=== PATIENT | male | born 1935 | race Caucasian/White ===

== ENCOUNTER 2019-07-01 11:34 | Inpatient (IN) | payer MEDICARE, OTHER ==
[~2019-07-01] VITALS: Ht 198.1 cm; Wt 106.6 kg
--- NOTE | ~2019-07-01 | PN ---
PATIENT:CINTHYA MARTINEZ MEDICAL RECORD: [id number] LOCATION:[facility] ADMISSION DATE: 07/01/19 PROGRESS NOTE DATE OF SERVICE: 07/14/2019 SUBJECTIVE: The patient's case was discussed with staff. He has no new complaint. OBJECTIVE: The patient is much calmer than he has been. He has pretty limited insight about his situation. He is not showing any evidence of significant aggression. ASSESSMENT: Dementia. PLAN: The patient will be transitioned out of the hospital today. He has no evidence of dangerous to other patients or caregivers. His long-term prognosis is guarded. TRANSINT:[id number] Voice Confirmation ID: [id number] DOCUMENT ID: [id number] AAYUSH ALVARADO MD CC: [id number] DICTATION DATE: 07/14/19 1502 LAWN MOWER OPERATOR: 07/14/19 1747 DIS IN 07/14/19 [facility] [address] [place] [address]
[2019-07-01 14:55] VITALS: BP 99/58; BMI 27.7
--- NOTE | 2019-07-01 15:18 | NUR ---
The patient is awake and alert, he lives at the [facility] at the [facility]. His son brought him with a referral from Consuelo Arias APN. He is having increased confusion, he is not eating or sleeping. He is c/o his throat tightening and he gets extremely anxious and fearful that he will . The patient's son says he has camera's in the patient[place] and he notices when his Dad is up and the patient gets up all through the night and calls multiple times. The patient admits he is more confused and has a lot of anxiety. He is a full code and spoke to the patient's son. His skin is intact except he has generalized edema to his left ankle.
[2019-07-01] MEDS ORDERED: VITAMIN D (15:36)
[2019-07-01] MEDS ORDERED: CELEXA20 MG PO (15:36)
[2019-07-01] MEDS ORDERED: KLONOPIN0.5 MG PO (15:37)
[2019-07-01] MEDS ORDERED: VITAMIN B-121000 MCG PO (15:38)
[2019-07-01] MEDS ORDERED: SINEQUAN50 MG PO (15:39)
[2019-07-01] MEDS ORDERED: PROTONIX20 MG PO (15:39)
[2019-07-01] MEDS ORDERED: MYSOLINE 50 MG50 MG PO (15:40)
[2019-07-01] MEDS ORDERED: PROBIOTIC1 EAC1 PO (16:03)
[2019-07-01] MEDS ORDERED: RESTORIL15 MG PO (16:04)
--- NOTE | 2019-07-01 18:41 | NUR ---
NURSE ADMINISTERED 0.[address] ALVARADO ORDER FOR ANXIETY. WILL REASSESS FOR EFFECTIVENESS Q 1 HOUR.
[2019-07-01 20:00] VITALS: BP 135/73
--- NOTE | 2019-07-01 20:01 | NUR ---
B.) PT IS ALERT AND ORIENTED TO SELF ONLY. HE IS ABLE TO AMBULATE AND MAKE HIS NEEDS KNOWN. HE IS COOPERATIVE WITH STAFF. HE IS VERY CONFUSED AND ANXIOUS. STATING "I CAN GO TO MY HOUSE ITS JUST A FEW MINUTES FROM HERE." I.) PROVIDED PM MEDICATIONS. REDIRECT OFTEN. R.) COMPLIANT WITH ALL MEDICATIONS. DIFFICULT TO REDIRECT AT TIMES. P.) WILL CONTINUE TO MONITOR
--- NOTE | 2019-07-01 20:20 | NUR ---
PT IS STILL VERY ANXIOUS. PACING AND CRYING. PRN 0.5MG ATIVAN PO ADMINISTERED. WILL CONTINUE TO MONITOR
[2019-07-01 20:30] LABS: BILIRUBIN NEGATIVE (NEGATIVE); GLUCOSE NEGATIVE (NEGATIVE); KETONE NEGATIVE (NEGATIVE); NITRITE NEGATIVE (NEGATIVE); SPECIFIC GRAVITY 1.015 (1.005-1.020); UROBILINOGEN NORMAL (NORMAL)
--- NOTE | 2019-07-01 21:02 | NUR ---
PT IS RESTING CALMLY IN BED EYES CLOSED. WILL CONTINUE TO MONITOR.
[2019-07-02 07:09] LABS: BASOPHILS 0.6 % (0-2); EOSINOPHILS 2.7 % (0-7); HEMOGLOBIN 14.1 g/dL (13.5-17.5); LYMPHOCYTES 36.5 % (15-50); MCH 32.5 pg (26.0-34.0); MCHC 34.4 g/dL (31.0-37.0); MCV 94.5 fL (80.0-100.0); MEAN PLATELET VOLUME 10.2 fL (7.4-10.4); MONOCYTES 9.7 % (2-11); NEUTROPHILS 50.5 % (40-80); PLATELET COUNT 173 10x3/uL (130-400); RBC 4.34 10x6/uL (4.20-6.10); RDW 12.8 % (11.5-14.5); WBC 6.3 10x3/uL (4.8-10.8)
[2019-07-02 07:56] LABS: ALBUMIN 3.6 g/dL (3.4-5.0); ANION GAP 10.3 mmol/L (8-16); BILIRUBIN - TOTAL 0.82 mg/dL (0.2-1.3); CALCIUM 8.7 mg/dL (8.5-10.1); CARBON DIOXIDE 28.3 mmol/L (21.0-32.0); CHOL - HDL RATIO 3.6 ratio (2.3-4.9); CREATININE - SERUM 1.1 mg/dL (0.6-1.3); LDL-HDL RATIO 2.3 ratio (1.5-3.5); POTASSIUM - SERUM 3.6 mmol/L (3.5-5.1); THYROID STIMULATING HORMONE 2.06 uIU/mL (0.36-3.74)
[2019-07-02 08:09] VITALS: BP 112/68; BP 112/76
[2019-07-02 10:16] VITALS: Ht 198.1 cm; Wt 106.6 kg
--- NOTE | 2019-07-02 16:59 | NUR ---
PT. CALM, ALERT, COOPERATIVE. NO ADVERSE BEHAVIORS NOTED. MEDS ADMIN PER ORDERS. NO DIFFICULTY SWALLOWING. NO COMPLAINTS OF ANXIETY OR FEELINGS OF HIS THROAT CONSTRICTING. PT REMAINS CONFUSED. CONT POC DIRECTED.
--- NOTE | 2019-07-02 18:19 | NUR ---
The patient spoke to his son and he became anxious after the phone call and he started getting tearful and he said "My throat, my throat." Sat him down and gave him Ativan 0.5 mg and Haldol 2 mg PO. Will monitor.
--- NOTE | 2019-07-02 18:20 | NUR ---
B.) PT IS ALERT AND ORIENTED TO SELF ONLY. HE HAS POOR INSIGHT INTO HIS SITUATION. HE IS ABLE TO AMBULATE WITHOUT ASSISTANCE. HE IS AT TIMES TEARFUL AND ANXIOUS. HE IS SEEN PACING THE HALLS. HE C/O OF FEELING LIKE HIS THROAT IS CLOSING IN ON HIM AND HIS RR IS INCREASING. I.) PROVIDED PRN 0.5 MG ATIVAN PO. REDIRECT OFTEN. R.) COMPLIANT WITH ALL MEDICATIONS. EASY TO REDIRECT. P.) WILL CONTINUE TO MONITOR.
--- NOTE | 2019-07-02 18:45 | NUR ---
PT RESTING CALMLY IN BED WITH EYES CLOSED. NO SIGNS OF DISTRESS NOTED. WILL CONTINUE TO MONITOR.
--- NOTE | 2019-07-02 18:54 | NUR ---
Spoke to the patient and asked him how he is and he said he is feeling better. had him do some slow breathing and he has calmed down. Will watch his behavior and monitor his anxiety.
[2019-07-02 21:17] VITALS: BP 130/67
--- NOTE | 2019-07-03 00:46 | NUR ---
PT C/O ANXIETY. GRABBING AT THROAT. STATES "IM SO WORRIED JUST SAVE ME." INSTRUCTED ON RELAXING BREATHS AND ADMINISTERED PRN 0.5MG PO ATIVAN. WILL CONTINUE TO MONITOR.
--- NOTE | 2019-07-03 01:15 | NUR ---
PT RESTING CALMLY IN BED WITH EYES CLOSED. NO DISTRESS NOTED. WILL CONTINUE TO MONITOR
[2019-07-03 09:00] VITALS: BP 135/74
[2019-07-03 09:07] VITALS: BP 135/74
--- NOTE | 2019-07-03 18:11 | NUR ---
ALERT, CALM, COOPERATIVE, NO EPISODES OF TEARFULNESS NOTED. PT. CONTINUES CONFUSED. MEDS ADMIN PER ORDERS WITH COMPLETE MED COMPLIANCE NOTED. CONTINUE PLAN OF CARE. PATIENT OCCASIONALLY PACES ABOUT UNIT BUT IS EASILY RE-DIRECTABLE.
[2019-07-03 20:00] VITALS: BP 129/70
[2019-07-04 00:07] VITALS: BP 129/70
--- NOTE | 2019-07-04 01:42 | NUR ---
B.) PT IS ALERT AND ORIENTED TO SELF ONLY. HE HAS POOR INSIGHT INTO HIS SITUATION. HE IS ABLE TO AMBULATE WITHOUT ASSIST. HE IS ANXIOUS AND REQUESTS SOMETHING FOR ANXIETY. I.) EDUCATED ON PROPER RELAXING BREATHING TECHNIQUES. PROVIDED PRN ATIVAN 0.5MG IM. R.) DEMONSTRATED BREATHING TECHNIQUES BACK TO ME. COMPLIANT WITH ALL MEDICATIONS. P.) WILL CONTINUE TO MONITOR
--- NOTE | 2019-07-04 03:16 | NUR ---
PT RESTING CALMLY IN BED WITH EYES CLOSED. NO SIGNS OF DISTRESS NOTED. WILL CONTINUE TO MONITOR.
[2019-07-04 08:36] VITALS: BP 127/72
--- NOTE | 2019-07-04 08:45 | NUR ---
RECEIVED IN HALLWAY OUTSIDE OF NURSES STATION. CALM AND COOPERATIVE WITH CARE AND ASSESSMENT. ANXIOUS AT TIMES. REDIRECT AND REORIENT NEEDED. EATING BREAKFAST AT THIS TIME. CONTINUE PLAN OF CARE.
--- NOTE | 2019-07-04 13:55 | PN ---
PATIENT:CINTHYA MARTINEZ MEDICAL RECORD: [id number] LOCATION:[facility] ADMISSION DATE: 07/01/19 PROGRESS NOTE DATE OF SERVICE: 07/03/2019 SUBJECTIVE: Case was discussed with the team. The patient is tearful, had no tearful episodes today. New complaint was reported last night, is crying and had a breakdown and was medicated with Ativan 0.5 mg p.r.n. for his tearfulness and anxiety. The patient states that that did help. The patient reports that he is worried about his dog that he believes is left in his vehicle. OBJECTIVE: The patient's speech is slow, low tone, low volume. His eye contact is fair. His judgment and insight are impaired. His general appearance is slightly disheveled. His association is loose. His eye contact is fair. His judgment and insight are impaired. His thought and concentration is distracted. His mood is depressed and anxious. His affect is flat, narrow in range. He has moderate anxiety. His memory is poor for both recent and remote events. The patient does not appear to be attending to visual or auditory hallucinations. His judgment and insight are poor. ASSESSMENT: No changes from previous progress note. PLAN: To continue to monitor to help stabilize his mood and decrease his anxiety and to help keep him safe and to monitor his medications. Dictated By: Juana Plunkett APN I have interviewed/examined the above patient and agree with these documented findings. TRANSINT:[id number] Voice Confirmation ID: [id number] DOCUMENT ID: [id number] AAYUSH ALVARADO MD at 1355 at 1555 CC: [id number] DICTATION DATE: 07/03/191919 LEAD INSTALLER: 07/04/19 0719 ADM IN [facility] [address] [place] [address]
--- NOTE | 2019-07-04 16:22 | PN ---
PATIENT:CINTHYA FUNEZ MEDICAL RECORD: [id number] LOCATION:[facility] ADMISSION DATE: 07/01/19 PROGRESS NOTE DATE OF SERVICE: 07/02/2019 SUBJECTIVE: Mr. Funez's assessment did care team with staff recording. Patient continues to exhibit some anxiety, was administered p.r.n. Ativan for 2 times a day. Assessment, the patient states that he has difficulty breathing and feels anxious. OBJECTIVE: The patient's speech is slow, low tone, low volume. His eye contact is fair. His judgment and insight is impaired. He is oriented to person, but not to place, time or situation. The patient does not appear to be attending to any auditory or visual hallucinations. The patient's memory is poor for both recent and remote events. His anxiety is moderate to severe. His mood is depressed and anxious. His affect is flat and narrow in range. ASSESSMENT: Dementia and generalized anxiety disorder, severe. Differential, panic and differential, insomnia. PLAN: To continue to decrease and taper his temazepam and switch to an alternative to manage his anxiety by changing medications. We will continue to monitor him for his mood to stabilize his mood and his behaviors and to keep him safe. Dictated By: Juana Plunkett APN I have interviewed/examined the above patient and agree with these documented findings. TRANSINT:[id number] Voice Confirmation ID: [id number] DOCUMENT ID: [id number] AAYUSH ALVARADO MD at 1622 at 1555 CC: [id number] DICTATION DATE: 07/02/19 1629 MONUMENT MASON: 07/03/19 0347 ADM IN [place] [id number] [place] [id number]
--- NOTE | 2019-07-04 16:22 | PSY ---
PATIENT NAME:LAQUITA FUNEZ MEDICAL RECORD: [id number] : 39 LOCATION:[facility] ADMISSION DATE: 07/01/19 ACCOUNT: [id number] PSYCHIATRIC EVALUATION DATE OF EVALUATION: 07/01/[address] Alvarado. Patient presents here with increased anxiety and confusion. CHIEF COMPLAINT: He is not eating or sleeping. IDENTIFYING DATA: Mr. Laquita Funez referred to as Christo is an 84-year-old male who appears slightly older than his stated age. HISTORY OF PRESENT ILLNESS: The patient was admitted from the clinic office of Consuelo Matthews APRN. He was brought in by his son after having noting that he was having increased confusion. He had not been eating or sleeping and he would complain of his throat tightening and getting extremely anxious and fearful that he was going to . The son is able to see him on the camera. The patient calls and notices that his dad is up all through the night and calls multiple times. The patient does admit that he does feel more confused and has a lot of anxiety. PAST MEDICAL HISTORY: The patient does have a history of GERD. PAST PSYCHIATRIC HISTORY: The patient does have a history of dementia and anxiety. ALLERGIES: No known allergies. CURRENT MEDICATIONS: Lactobacillus 1 tablet by mouth daily, vitamin B12 1000 mcg daily by mouth, Celexa 40 mg daily p.o., vitamin D 2000 units daily, Protonix 40 mg daily, temazepam 15 mg every bedtime, primidone 50 mg every bedtime, clonazepam 0.5 mg b.i.d. p.r.n. The patient also was on doxepin, which was discontinued upon admission. SOCIAL HISTORY: The patient resides at the [facility] an independent living by himself. He does have his son monitoring. Family do live in the vicinity. Patient is a poor historian. MENTAL STATUS EXAM: The patient is alert. He is disoriented. Patient is confused to place and reason why he is here. His voice is soft. Speech slow, does have latency when responding to questions. His affect is flat. His mood is depressed. His thought processes incoherent. His thought content is not able to be evaluated. The patient's memory is poor for recent. His judgment is limited and his insight is poor. His impulsivity is moderate. The patient is unable to complete a 3 object recall. The patient does not appear to be hallucinating either visual or auditory. The patient does not exhibit any delusions. DIAGNOSTIC IMPRESSION: AXIS I: Dementia, anxiety, insomnia. AXIS II: Deferred. AXIS III: Gastroesophageal reflux disease. AXIS IV: Financial, primary support, social environment, and economic stressors. AXIS V: At admission was highest during the last year with 56 and at admission is 20. PLAN: To admit him to [facility] at [place] to monitor for his confusion, help keep him safe, and to adjust medications. Dictated By: Juana Plunkett APN I have interviewed/examined the above patient and agree with these documented findings. TRANSINT:[id number] Voice Confirmation ID: [id number] DOCUMENT ID: [id number] Dictated By: JUANA PLUNKETT I have interviewed/examined the above patient and agree with these documented findings. AAYUSH ALVARADO MD at 1622 at 1555 CC: [id number] DICTATION DATE: 07/01/191930 CUSTOM CAR BUILDER: 07/01/192029 ADM IN [facility] [address] [place] [id number]
--- NOTE | 2019-07-04 17:08 | NUR ---
GOOD RESPONSE TO ATIVAN.RESTING QUIETLY WITH EYES CLOSED,RESP REG AND EVEN.
[2019-07-04 20:08] VITALS: BP 127/65
--- NOTE | 2019-07-05 02:10 | NUR ---
B)RECEIVED PATIENT WALKING IN THE DAYROOM. CONFUSED AND DISORIENTED. RELATES "I OWN LAND RIGHT BACK HERE NOT FAR FROM HERE." THEN STARTED TALKING ABOUT GETTING A CHECK STARTED. WANTING TO GO TO HIS ROOM. WAS COOPERATIVE WHEN EXPLALINED TO PATIENT WE HAVE TO WAIT UNTIL EVERYBODY GETS THEIR MEDICATIONS. I)ADMINISTER MEDS AND MONITOR COMPLIANCE. REORIENT NEEDED. R)MED COMPLIANT. POOR REORIENTAION PATIENT IS DELUSIONAL AND UNABLE TO SEPARATE REALITY FROM FANTASY. P)CONTINUE POC AND PROVIDE SAFE ENVIRONMENT.
--- NOTE | 2019-07-05 02:43 | NUR ---
PATIENT CAME OUT INTO HALLWAY AND ASK FOR SOMETHING FOR ANXIETY. ATIVAN PO PRN ADMINISTERED PER ORDERS.
[2019-07-05 07:13] LABS: RAPID PLASMA REAGIN Non Reactive (Non Reactive)
--- NOTE | 2019-07-05 09:29 | NUR ---
RECEIVED IN HALLWAY OUTSIDE OF NURSES STATION. CALM AND COOPERATIVE WITH CARE AND ASSESSMENT. CONFUSED. NO BEHAVIORS THIS MORNING. REDIRECT AND REORIENT NEEDED. EATING BREAKFAST AT THIS TIME. CONTINUE PLAN OF CARE.
[2019-07-05 10:52] VITALS: BP 172/67
--- NOTE | 2019-07-05 11:47 | PN ---
PATIENT:CINTHYA MARTINEZ MEDICAL RECORD: [id number] LOCATION:[facility] ADMISSION DATE: 07/01/19 PROGRESS NOTE DATE OF SERVICE: 07/04/2019 SUBJECTIVE: The patient's case was discussed with staff. He has no new complaint. OBJECTIVE: The patient is in good behavioral control. He did require some p.r.n. medication last night because of some anxiety. ASSESSMENT: Dementia. PLAN: The patient is going to be taken off Restoril. I am going to manage his anxiety and difficulty with sleep with a higher dose of Klonopin. I am also going to start him on low dose of trazodone. TRANSINT:[id number] Voice Confirmation ID: [id number] DOCUMENT ID: [id number] AAYUSH ALVARADO MD at 1147 CC: [id number] DICTATION DATE: 07/04/19 171 RESEARCH PROJECT COORDINATOR: 07/05/19 0134 ADM IN [facility] [address] [place] [id number]
--- NOTE | 2019-07-05 12:15 | NUR ---
Nutrition Follow-up: Chart reviewed. Patient having some anxiety and feeling that his throat is closing up, no s/s of aspiration per MD notes. Diet: Cardiac PO intake: ~64% average x last 10 meals Last BM: 07/03/19. WT: 237.8# (07/03/19); Admit WT: 240# (07/01/19) Meds noted: probiotic. No new labs. Recommend continue current diet or per RUNNER OUT/MD. Encourage PO intake. RD following.
[2019-07-05 22:36] VITALS: BP 130/70
--- NOTE | 2019-07-05 23:17 | NUR ---
B.) PT IS ALERT AND ORIENTED TO SELF AND SITUATION. HE IS ABLE TO AMBULATE WITHOUT ASSIST AND MAKE HIS NEEDS KNOWN. NO SIGNS OF ANXIETY NOTED THIS SHIFT. I.) PROVIDED PM MEDICATIONS PRESCRIBED. REDIRECT OFTEN. R.) COMPLIANT WITH ALL MEDICATIONS. EASY TO REDIRECT. P.) WILL CONTINUE TO MONITOR.
--- NOTE | 2019-07-05 23:50 | NUR ---
PT ANXIOUS GRABBING AT THROAT. INSTRUCTED HIM ON SLOW DEEP BREATHING EXERCISES. PT DEMONSTRATED SEVERAL BACK. BUT STILL SHAKING AND REQUESTING SOMETHING TO HELP WITH ANXIETY. PRN 0.5 MG ATIVAN ADMINISTERED. WILL CONTINUE TO MONITOR.
--- NOTE | 2019-07-06 01:11 | NUR ---
PT STATES HE FEELS LESS ANXIOUS. RESTING CALMLY IN BED WITH EYES OPEN. WILL CONTINUE TO MONITOR.
[2019-07-06 10:33] VITALS: BP 100/58
--- NOTE | 2019-07-06 12:41 | NUR ---
RECEIVED IN HALLWAY OUTSIDE OF NURSES STATION. CALM AND COOPERATIVE WITH CARE AND ASSESSMENT. CONFUSED. NO BEHAVIORS. LESS ANXIOUS. REDIRECT AND REORIENT NEEDED. EATING LUNCH AT THIS TIME. CONTINUE PLAN OF CARE.
--- NOTE | 2019-07-06 15:31 | PN ---
PATIENT:CINTHYA MARTINEZ MEDICAL RECORD: [id number] LOCATION:[facility] ADMISSION DATE: 07/01/19 PROGRESS NOTE DATE OF SERVICE: 07/05/2019 SUBJECTIVE: The patient's case was discussed with staff. He has no new complaint. OBJECTIVE: The patient is wandering at night. He is slightly less agitated. ASSESSMENT: Dementia. PLAN: The patient did receive p.r.n. Ativan last night for some anxiety. He will be monitored for clinical changes associated with this. His long-term prognosis is guarded. Supportive and educational interventions were made. TRANSINT:[id number] Voice Confirmation ID: [id number] DOCUMENT ID: [id number] AAYUSH ALVARADO MD at 1531 CC: [id number] DICTATION DATE: 07/05/[address] REGISTRY OFFICER: 07/06/19 0423 ADM IN [place] [id number] [place] [address]
--- NOTE | 2019-07-06 20:05 | NUR ---
B.) PT IS ALERT AND ORIENTED TO SELF ONLY. HE IS ABLE TO MAKE HIS NEEDS KNOWN. HE IS CALM AND COOPERATIVE WITH STAFF. I.) RECORDED EKG. PROVIDED PM MEDICATIONS. REDIRECT NEEDED. R.) COMPLIANT WITH ALL MEDICATIONS AND EKG. EASY TO REDIRECT. P.) WILL CONTINUE TO MONITOR.
--- NOTE | 2019-07-06 20:45 | NUR ---
PT IS CRYING AND ANXIOUS. HE IS PACING THE HALLS AND REQUESTED SOMETHING FOR HIS ANXIETY. PRN 0.5MG ATIVAN ADMINISTERED IM. WILL CONTINUE TO MONITOR
[2019-07-06 21:00] VITALS: BP 102/69
--- NOTE | 2019-07-06 21:10 | NUR ---
PT IS RESTING CALMLY IN BED WITH EYES CLOSED. NO SIGNS OF DISTRESS NOTED. WILL CONTINUE TO MONITOR.
--- NOTE | 2019-07-07 09:00 | NUR ---
RECEIVED IN HALLWAY OUTSIDE OF NURSES STATION. CALM AND COOPERATIVE WITH CARE AND ASSESSMENT. NO ANXIETY OR PANIC ATTACKS THIS MORNING. NO PARANOID STATEMENTS MADE. REDIRECT AND REORIENT NEEDED. EATING BREAKFAST AT THIS TIME. CONTINUE PLAN OF CARE.
--- NOTE | 2019-07-07 11:20 | NUR ---
Nutrition Follow-up: Diet: Cardiac PO intake: ~59% average x last 9 meals Last BM: 07/03/19. WT: 237.8# (07/03/19); Admit WT: 240# (07/01/19) Meds noted: probiotic. No new labs. Recommend continue current diet. Will continue to monitor PO intake and wt trend. Will add Ensure with meals if PO intake trends consistently <50-65% average. Encourage PO intake. RD following.
--- NOTE | 2019-07-07 16:47 | PN ---
PATIENT:CINTHYA MARTINEZ MEDICAL RECORD: [id number] LOCATION:[facility] ADMISSION DATE: 07/01/19 PROGRESS NOTE DATE OF SERVICE: 07/06/2019 SUBJECTIVE: The patient's case was discussed with staff. He has no new complaint. OBJECTIVE: The patient is continuing to show a great deal of anxiety and panic-like symptoms. Part of this is probably related to an underlying longstanding anxiety disorder, but then it is coupled with the fact that he has a fairly advanced dementia and is unable to make sense of what he is seeing around him, and at that point, he becomes very agitated. I do think I have him on a reasonable dose of Klonopin and even though the symptoms have not dramatically improved, I am reluctant to increase it today. I am going to leave the benzo at the current dose and we will see if perhaps by tomorrow he has shown some improvement. TRANSINT:[id number] Voice Confirmation ID: [id number] DOCUMENT ID: [id number] AAYUSH ALVARADO MD at 1647 CC: [id number] DICTATION DATE: 07/06/19 1559 DIRECTOR OF PLAYER PERSONNEL: 07/06/19 2116 ADM IN [facility] [address] [place] [address]
[2019-07-07 18:22] VITALS: BP 124/64
[2019-07-07 20:00] VITALS: BP 125/65
--- NOTE | 2019-07-07 21:08 | NUR ---
B.) PT IS ALERT AND ORIENTED TO SELF ONLY. HE HAS POOR INSIGHT INTO HIS SITUATION. HE IS RECEIVED IN THE DAYROOM ON THE COUCH SOCIALIZING WITH PEERS. HE IS PLEASANT, CALM AND COOPERATIVE WITH STAFF. I.) PROVIDED PM MEDCATION PRESCRIBED. REDIRECT OFTEN. R.) COMPLIANT WITH ALL MEDICATIONS. EASY TO REDIRECT. P.) WILL CONTINUE TO MONITOR.
--- NOTE | 2019-07-08 10:00 | NUR ---
PATIENT CALM AND ALERT, APPETITE GOOD FOR B'FAST. NO TEARFULNESS NOTED AT THIS TIME. NO ADVERSE BEHAVIORS NOTED. HOWEVER, PATIENT CONTINUES QUITE CONFUSED. MEDS ADMIN PER ORDERS WITH COMPLETE MED COMPLIANCE NOTED. CONTINUE PLAN OF CARE.
[2019-07-08 10:32] VITALS: BP 115/70
[2019-07-08 20:00] VITALS: BP 125/65
--- NOTE | 2019-07-08 23:56 | NUR ---
B)RECEIVED PATIENT SITTING IN THE DAYROOM. CONFUSED AND DISORIENTED. COOPERATIVE AND PLEASANT WITH STAFF. FREQUENTLY ASK STAFF IS EVERYTHING IS OK AND IF HE CAN HELP. I)ADMINISTER MEDS AND MONITOR COMPLIANCE. REORIENT NEEDED. R)MED COMPLIANT. POOR REORIENTATION DUE TO IMPAIRED ABILITY TO PROCESS AND RETAIN INFORMATION. P)CONTINUE POC AND PROVIDE SAFE ENVIRONMENT.
[2019-07-09 10:46] VITALS: BP 121/61
--- NOTE | 2019-07-09 11:06 | NUR ---
The patient is awake and alert. He is pleasant and calm. Asked him "How is your anxiety?" He said "A lot better." Asked him "How is your throat?" He said "A lot better." He has poor insight into his situation. He is confused. He knows his name. Provide prescribed meds. The patient is compliant with meds. Continue POC.
[2019-07-09 20:00] VITALS: BP 118/85
--- NOTE | 2019-07-09 23:49 | NUR ---
PATIENT IS VERY CONFUSED, EASILY REDIRECTED, HE IS QUIET AND SEEMS VERY UNSURE OF HIMSELF AND EVERYTHING AROUND HIM. COMPLIANT WITH MEDS
--- NOTE | 2019-07-10 09:00 | NUR ---
RECEIVED IN HALLWAY OUTSIDE OF NURSES STATION. CALM AND COOPERATIVE WITH CARE AND ASSESSMENT. NO BEHAVIORS. REDIRECT AND REORIENT NEEDED. EATING BREAKFAST AT THIS TIME. CONTINUE PLAN OF CARE.
[2019-07-10 09:36] VITALS: BP 135/60
[2019-07-10 20:00] VITALS: BP 117/66
--- NOTE | 2019-07-11 01:02 | NUR ---
RECEIVED IN HALLWAY. SITTING WITH PEERS AT HIS SIDE. CALM AND COOPERATIVE WITH CARE AND ASSESSMENT. ENCOURAGE TO EXPRESS NEEDS. RESTING IN BED WITH EYES CLOSED AT THIS TIME. CONTINUE PLAN OF CARE
--- NOTE | 2019-07-11 09:20 | NUR ---
RECEIVED IN HALLWAY OUTSIDE OF NURSES STATION. CALM AND COOPERATIVE WITH CARE AND ASSESSMENT. NO BEHAVIORS. VERY PLEASANT. REDIRECT AND REORIENT NEEDED. EATING BREAKFAST AT THIS TIME. CONTINUE PLAN OF CARE.
[2019-07-11 10:55] VITALS: BP 101/51
--- NOTE | 2019-07-11 13:37 | PN ---
PATIENT:CINTHYA MARTINEZ MEDICAL RECORD: [id number] LOCATION:[facility] ADMISSION DATE: 07/01/19 PROGRESS NOTE DATE OF SERVICE: 07/08/2019 SUBJECTIVE: The patient's case was discussed with staff. The patient states that he would like to be fishing and stuff and is guessing that he has 7 or 8 children. The patient denies any new complaint. OBJECTIVE: The patient is eating a little better, but still complains of his throat closing. MENTAL STATUS EXAMINATION: The patient's appearance is appropriate. His orientation as he is alert to person and place, disoriented to place, time, and situation. His speech is soft, low tone, low volume and his associations are loose. His eye contact is good. His judgment and insight is impaired. His thought and concentration is confused. His mood is depressed. His affect is restricted. His anxiety is moderate. His memory is poor for both remote and recent events. He does not appear to be attending to either visual or auditory hallucinations. His judgment and insight is poor. His impulsivity is moderate. ASSESSMENT: No change to previous diagnosis. PLAN: Is to continue to monitor for his medications to monitor for his degree of confusion. The patient has had an increase in sleep. We will monitor his mood and we will continue to monitor for improvement in his eating and to keep him safe. Dictated By: Juana Plunkett APN I have interviewed/examined the above patient and agree with these documented findings. TRANSINT:[id number] Voice Confirmation ID: [id number] DOCUMENT ID: [id number] AAYUSH ALVARADO MD at 1337 at 1555 CC: [id number] DICTATION DATE: 07/08/19 1846 RESEARCH INSTRUCTOR: 07/09/19 0246 ADM IN [facility] [address] [place] [address]
--- NOTE | 2019-07-11 13:37 | PN ---
PATIENT:CINTHYA MARTINEZ MEDICAL RECORD: [id number] LOCATION:[facility] ADMISSION DATE: 07/01/19 PROGRESS NOTE DATE OF SERVICE: 07/07/2019 SUBJECTIVE: The patient's case was discussed with staff. He has no new complaint. OBJECTIVE: The patient denies intent to harm himself or others. He is tolerating his medications well. He is still having some significant anxiety, but I think it is better. I am going to maintain him on current medications, which I have reviewed. I will monitor him for evidence of sedation. I have some additional longitudinal history which indicates that he has not had an underlying anxiety disorder before, so certainly treating him with the antidepressant along with the Klonopin is reasonable. ASSESSMENT: Dementia. PLAN: As above, current medicines will be maintained. TRANSINT:[id number] Voice Confirmation ID: [id number] DOCUMENT ID: [id number] AAYUSH ALVARADO MD at 1337 CC: [id number] DICTATION DATE: 07/07/191756 COREROOM FOUNDRY LABORER: 07/08/19 0226 [facility] [address] [place] [address]
--- NOTE | 2019-07-11 13:37 | PN ---
PATIENT:CINTHYA MARTINEZ MEDICAL RECORD: [id number] LOCATION:[facility] ADMISSION DATE: 07/01/19 PROGRESS NOTE DATE OF SERVICE: 07/09/2019 DATE OF SERVICE: 07/09/2019 SUBJECTIVE: The patient's case was reviewed with staff. The patient reports that he slept well. He is looking out the window, saying this is where he grew up and he likes to watch outside. OBJECTIVE: The patient ate fairly well today. He is pleasant and conversive. His appearance is appropriate. His orientations, he is alert to person and disoriented to place, time and situation. His speech is soft, low tone, low volume. Associations are loose. His eye contact is good. His judgment and insight is impaired. His thought and concentration is circumstantial. His mood is depressed. Affect is flat, narrow in range. His anxiety is mild. Memory is poor for recent and remote events. The patient does not appear to be attending to either visual or auditory hallucinations. His judgment and insight is poor. His impulsivity is high. ASSESSMENT: No change in previous diagnosis. PLAN: Continue to monitor him for his anxiety to stabilize his mood. Reviewed treatment plan, goals were reviewed. Plan is to seek more services for him than what he previously had. Dictated By: Juana Plunkett APN I have interviewed/examined the above patient and agree with these documented findings. TRANSINT:[id number] Voice Confirmation ID: [id number] DOCUMENT ID: [id number] AAYUSH ALVARADO MD at 1337 at 1547 CC: [id number] DICTATION DATE: 07/09/19 1203 [facility]IVING: 07/09/19 1309 ADM IN [facility] [address] [place] [address]
--- NOTE | 2019-07-11 13:38 | PN ---
PATIENT:CINTHYA MARTINEZ MEDICAL RECORD: [id number] LOCATION:[facility] ADMISSION DATE: 07/01/19 PROGRESS NOTE DATE OF SERVICE: 07/10/2019 SUBJECTIVE: The patient's case was reviewed with staff. The patient reports that he slept well. The patient is sitting in a chair quietly, visiting with another patient. OBJECTIVE: The patient is alert to person, disoriented to time, place, or situation. His appearance is appropriate. His speech is soft, low tone, low volume. His association is loose. His eye contact is good. His judgment and insight are impaired. His thought and concentration distracted. His mood is depressed, slightly anxious. His affect is flat and narrow in range. His anxiety is mild. His memory is poor for both recent and remote events. The patient does not appear to be attending any visual or auditory hallucination. Judgment and insight are poor. Impulsivity is high. The patient denies any suicidal ideation. ASSESSMENT: No change in previous diagnosis. PLAN: We will continue to monitor him for his anxiety to stabilize his mood and his depression and his cognition. Reviewed treatment plan, goals were reviewed. Plan will be to assist him to live in the least restrictive environment. Dictated By: Juana Plunkett APN I have interviewed/examined the above patient and agree with these documented findings. TRANSINT:[id number] Voice Confirmation ID: [id number] DOCUMENT ID: [id number] AAYUSH ALVARADO MD at 1338 at 1547 CC: [id number] DICTATION DATE: 07/10/19 193 REGISTERED RADIATION THERAPIST: 07/11/19 0707 [facility] IN [facility] [address] [place] [id number]
[2019-07-11 19:57] VITALS: BP 132/69
--- NOTE | 2019-07-12 00:37 | NUR ---
RECEIVED IN BEDROOM. RESTING IN BED WITH EYES CLOSED. CALM AND COOPERATIVE WITH CARE AND ASSESSMENT. ENCOURAGE TO EXPRESS NEEDS. REDIRECT AND REORIENT NEEDED. RESTING IN BED WITH EYES CLOSED. CONTINUE PLAN OF CARE
[2019-07-12 08:56] VITALS: BP 125/68
--- NOTE | 2019-07-12 09:00 | NUR ---
RECEIVED IN HALLWAY OUTSIDE OF NURSES STATION. CALM AND COOPERATIVE WITH CARE AND ASSESSMENT. PLEASANT. NO BEHAVIORS. REDIRECT AND REORIENT NEEDED. EATING BREAKFAST AT THIS TIME. CONTINUE PLAN OF CARE.
--- NOTE | 2019-07-12 11:46 | NUR ---
SW SPOKE TO PT'S SON, VICKIE, TO DISCUSS DISCHARGE PLANNING NEEDS. SON WANTED PT TO BE EVALUATED BY [facility]. HE STATED HE WOULD MAKE A DECISION AND WILL SPEAK TO SW TOMORROW. SW GAVE PT UPDATE. VICKIE VOICED UNDERSTANDING OF DISCUSSION.
--- NOTE | 2019-07-12 15:11 | PN ---
PATIENT:CINTHYA MARTINEZ MEDICAL RECORD: [id number] LOCATION:[facility] ADMISSION DATE: 07/01/19 PROGRESS NOTE DATE OF SERVICE: 07/11/2019 SUBJECTIVE: The patient's case was discussed with staff. He has no new complaint. OBJECTIVE: The patient is significantly calmer. I think this is related to the use of the Klonopin. I do not think he is over sedated at this point, but I certainly would like to back his dose down a little bit before discharging him. I am not going to do so today. I hope that the underlying anxiety can at least in part be treated with SSRI and he is on Celexa. He has not had any p.r.n. medications for 5 days. TRANSINT:[id number] Voice Confirmation ID: [id number] DOCUMENT ID: [id number] AAYUSH ALVARADO MD at 1511 CC: [id number] DICTATION DATE: 07/11/19 165 TEXTILE DESIGNER: 07/12/19 0359 ADM IN [address] [id number] [place] [address]
[2019-07-12 20:56] VITALS: BP 129/67
--- NOTE | 2019-07-12 22:30 | NUR ---
RECEIVED IN DAYROOM. WALKING ABOUT. STANDING AT NURSES STATION. NOTED ANXIETY. CONFUSED. PRN ATIVAN 0.5 MG PO GIVEN FOR ANXIETY. CALM AND COOPERATIVE WITH CARE AND ASSESSMENT. CONTINUES TO SHOW SIGNS OF ANXIETY. CONTINUE PLAN OF CARE
--- NOTE | 2019-07-12 23:05 | NUR ---
RESTING IN BED WITH EYES CLOSED AT THIS TIME.
--- NOTE | 2019-07-13 09:15 | PN ---
PATIENT:CINTHYA MARTINEZ MEDICAL RECORD: [id number] LOCATION:[facility] ADMISSION DATE: 07/01/19 PROGRESS NOTE DATE OF SERVICE: 07/12/2019 SUBJECTIVE: The patient's case was discussed with staff. He has no new complaint. OBJECTIVE: The patient is in good behavioral control. He is certainly much calmer than he was a few days ago. ASSESSMENT: Dementia. PLAN: The patient is currently taking 1.5 mg of Klonopin a day. I do not approve of this; however, I am reluctant to reduce the medication secondary to concerns about precipitating more anxiety. I am going to give him another day at this dose, and then we will consider perhaps backing off on it slightly. I do not have a major problem with him being on this on a consistent basis, especially if he is in a controlled environment where it is being administered to him by data at [facility] course. TRANSINT:[id number] Voice Confirmation ID: [id number] DOCUMENT ID: [id number] AAYUSH ALVARADO MD at 0915 CC: [id number] DICTATION DATE: 07/12/19 1619 FIREMAN HELPER: 07/12/19 2327 ADM IN [facility] [address] [place] [address]
[2019-07-13 10:03] VITALS: BP 125/71
--- NOTE | 2019-07-13 15:34 | NUR ---
ALERT, CALM, PLEASANT, POLITE, AND VERY COOPERATIVE THIS SHIFT. NO BEHAVIORAL ISSUES NOTED. MEDS ADMIN PER ORDERS WITH COMPLETE MED COMPLIANCE NOTED. CONT PLAN OF CARE DIRECTED.
[2019-07-13] MEDS ORDERED: DESERYL PO (17:14)
[2019-07-13] MEDS ORDERED: CELEXA20 MG PO (17:14)
[2019-07-13] MEDS ORDERED: KLONOPIN0.5 MG PO (17:14)
[2019-07-13] MEDS ORDERED: DULCOLAX5 MG PO (17:15)
[2019-07-13] MEDS ORDERED: VITAMIN D PO (17:15)
[2019-07-13] MEDS ORDERED: LINZESS145 MCG PO (17:15)
--- NOTE | 2019-07-13 19:52 | NUR ---
PATIENT RECEIVED IN DAYROOM, PATIENT IS CONFUSED BUT PLEASANT, SMILING AND IS BEING DISCHARGED TOMORROW, HE THANKED THIS NURSE FOR ALL THE HELP THAT HE HAS RECEIVED. WILL FOLLOW POC
[2019-07-13 20:33] VITALS: BP 138/74
[2019-07-14 10:03] VITALS: BP 151/87
--- NOTE | 2019-07-14 11:30 | NUR ---
The patient is awake and he is pleasant he has poor insight into his situation. He has been calm and has not shown any anxiety today except he has asked staff a hundred times about his jacket. It is packed because he is leaving today to go to [place]. All paperwork faxed to them. A hard copy is in an envelope to give to the driver/refuse collector transprting. Provide prescribed meds. The patient is compliant with meds. Continue with d/c.
--- NOTE | 2019-07-14 12:55 | NUR ---
Nutrition Follow-up: Diet: Cardiac PO intake: ~82% average x last 9 meals Last BM: 07/13/19. WT: 238.2# (07/10/19); Admit WT: 240# (07/01/19) Meds noted: dulcolax, linzess, probiotic. No new labs. Recommend continue current diet. RD following.
--- NOTE | 2019-07-14 14:56 | PN ---
PATIENT:CINTHYA MARTINEZ MEDICAL RECORD: [id number] LOCATION:[facility] ADMISSION DATE: 07/01/19 PROGRESS NOTE DATE OF SERVICE: 07/13/2019 SUBJECTIVE: The patient's case was discussed with staff. He has no new complaint. OBJECTIVE: The patient received some p.r.n. Ativan last night. This is the first dose of Ativan that he has received and I believe 5 days. He is sleeping and eating well. Generally, he is much calmer. ASSESSMENT: Dementia. PLAN: The patient is going to be transitioned to a senior care or rather assisted living center tomorrow. He will be monitored for clinical changes associated with the medicines he is receiving and will have followup with his primary care senior care physician. At this point, I would recommend he stay on the dose of Klonopin he is taking. I recognize that it has addictive potential and I recognize that he is on a substantial dose, especially for a man his age; however, weighing the relative risks and benefits, I think it is appropriate at this time. He is after all only taking a little bit more on a scheduled basis then he was receiving when he came into the hospital. TRANSINT:[id number] Voice Confirmation ID: [id number] DOCUMENT ID: [id number] AAYUSH ALVARADO MD at 1456 CC: [id number] DICTATION DATE: 07/13/191713 JAVA ARCHITECT: 07/13/19 2221 ADM IN [id number] [place] [address]
== END 2019-07-14 17:23 | DRG 57 ==
LOC: D.PSYCH 11:34
PROVIDERS: ADMIT Psychiatry & Neurology Psychiatry; ATTEND Psychiatry & Neurology Psychiatry
DX: G30.0 Alzheimer's disease with early onset (principal); K55.9 Vascular disorder of intestine, unspecified; F02.80 Dementia in other diseases classified elsewhere, unspecified severity, without behavioral disturbance, psychotic disturbance, mood disturbance, and anxiety; G47.00 Insomnia, unspecified; R63.0 Anorexia; F41.9 Anxiety disorder, unspecified; K59.00 Constipation, unspecified; K21.9 Gastro-esophageal reflux disease without esophagitis; E55.9 Vitamin D deficiency, unspecified; E53.8 Deficiency of other specified B group vitamins